=== PATIENT | male | born 1980 | race Caucasian/White ===

== ENCOUNTER 2016-09-17 11:42 | Emergency (ER) | payer MEDICARE, OTHER ==
[2016-09-17 12:07] VITALS: BP 143/101; PULSE 100; RESP 20; TEMP 98.6
[2016-09-17] MEDS ORDERED: ceFAZolin 1,000 MG VIAL IM STA (12:14)
--- NOTE | 2016-09-17 12:18 | ED ---
Skin/Abscess/FB HPI - General Chief complaint: Skin/Abscess/Foreign Body Stated complaint: RASH ALL OVER FACE Time Seen by Provider: 09/17/16 12:08 Source: patient, RN notes reviewed Mode of arrival: ambulatory Limitations: no limitations - History of Present Illness Initial comments: 35-year-old male present emergency Department chief complaint rash. Patient states this started after shaving. Patient states it's spread all areas where he shaved. Patient states the wrist was not new. Patient denies any fever, chills. Patient states that her open sores, some blistering noted. Patient states that hurts to touch serious denies. Patient states on both sides, head and neck region anywhere he shaved. Patient states he has ALLERGIES to penicillin, Bactrim. Patient states he has taken Keflex in the past. - Related Data Home Medications Medication Instructions Recorded Confirmed Albuterol Inhaler [Ventolin Hfa 1 - 2 puff INHALATION Q6HR PRN 09/23/15 11/13/15 Inhaler] Ibuprofen [Motrin] 800 mg PO TID PRN 09/23/15 11/13/15 Multivitamin [Men's Multi-Vitamin] 1 tab PO DAILY 09/23/15 11/13/15 Previous Rx's Medication Instructions Recorded Cephalexin [Keflex] 500 mg PO Q6HR #40 cap 09/17/16 Mupirocin Calcium 2% Cream 1 applic TOPICAL TID #15 gm 09/17/16 [Bactroban Cream] Allergies Allergy/AdvReac Type Severity Reaction Status Date / Time Penicillins Allergy Anaphylaxis Verified 11/13/15 08:35 sulfamethoxazole Allergy Anaphylaxis Verified 11/13/15 08:35 [From Bactrim] trimethoprim [From Bactrim] Allergy Anaphylaxis Verified 11/13/15 08:35 cherries Allergy Rash/Hives Uncoded 11/13/15 08:35 Review of Systems ROS Statement: Those systems with pertinent positive or pertinent negative responses have been documented in the HPI. ROS Other: All systems not noted in ROS Statement are negative. Past Medical History Past Medical History: CVA/TIA, Seizure Disorder History of Any Multi-Drug Resistant Organisms: MRSA Past Surgical History: Back Surgery Additional Past Surgical History / Comment(s): mass removed from left chest Past Anesthesia/Blood Transfusion Reactions: No Reported Reaction Past Psychological History: No Psychological Hx Reported Smoking Status: Former smoker Past Alcohol Use History: Rare Past Drug Use History: None Reported - Past Family History Mother Family Medical History: No Reported History Father Family Medical History: Hypertension General Exam Limitations: no limitations General appearance: alert, in no apparent distress Head exam: Present: atraumatic, normocephalic, normal inspection Eye exam: Present: normal appearance, PERRL, EOMI. Absent: scleral icterus, conjunctival injection, periorbital swelling ENT exam: Present: normal exam, normal oropharynx, mucous membranes moist, TM's normal bilaterally, normal external ear exam Neck exam: Present: normal inspection, full ROM. Absent: tenderness, meningismus, lymphadenopathy Respiratory exam: Present: normal lung sounds bilaterally. Absent: respiratory distress, wheezes, rales, rhonchi, stridor Cardiovascular Exam: Present: regular rate, normal rhythm, normal heart sounds. Absent: systolic murmur, diastolic murmur, rubs, gallop, clicks Skin exam: Present: rash (Rash noted on the face, head and neck region. There is erythematous for inside sores with some yellow crusting noted) Course Vital Signs 09/17/16 12:04 Temperature 98.6 F Pulse Rate 100 Respiratory 20 Rate Blood Pressure 143/101 O2 Sat by Pulse 99 Oximetry Medical Decision Making - Medical Decision Making 35-year-old male presented for rash. Patient appears to have a staph infection secondary to shaving. The advised the patient is changes razor. Patient was started on Keflex is taking this in the past. Return parameters were discussed. Disposition Clinical Impression: Folliculitis, Staphylococcal infection of skin Disposition: HOME SELF-CARE Condition: Stable Instructions: Folliculitis (ED) Additional Instructions: Please use a new razor shaving. Please return to the Emergency Department if symptoms worsen or any other concerns. Prescriptions: Cephalexin [Keflex] 500 mg PO Q6HR #40 cap Mupirocin Calcium 2% Cream [Bactroban Cream] 1 applic TOPICAL TID #15 gm Time of Disposition: 12:18
== END 2016-09-17 12:42 | disposition home or self-care (01) ==
LOC: EC 11:42
DX: L73.9 Follicular disorder, unspecified (principal); B95.8 Unspecified staphylococcus as the cause of diseases classified elsewhere; Z87.891 Personal history of nicotine dependence; Z79.899 Other long term (current) drug therapy; Z88.0 Allergy status to penicillin; Z88.2 Allergy status to sulfonamides; Z91.018 Allergy to other foods
CPT/HCPCS: 99282; 96372; J0690